=== PATIENT | male | born 1955 | race Two or more races ===

== ENCOUNTER 2025-05-11 11:34 | Outpatient (CLI) | payer MEDICAID ==
[2025-05-11 12:17] LABS: Hematocrit 38.1 % (41.0-53.0); Hemoglobin 12.4 g/dL (13.5-17.5); Mean Corpuscular Hemoglobin 29.2 pg (28.0-32.0); Mean Corpuscular Volume 89.7 fL (80.0-100.0); Nucleated Red Blood Cells % 0.0 %
[2025-05-11 12:36] LABS: Alanine Aminotransferase 27 U/L (7-40); Alkaline Phosphatase 92 U/L (46-116); Anion Gap 11 (5-15); BUN/Creatinine Ratio 15.1 (10.0-20.0); Calcium 9.0 mg/dL (8.7-10.4); Carbon Dioxide 24 mmol/L (20-31); Potassium 5.0 mmol/L (3.5-5.1); Sodium 144 mmol/L (136-145); Total Protein 6.7 g/dL (5.7-8.2)
[2025-05-11 12:37] LABS: Albumin 4.1 g/dL (3.2-4.8); Blood Urea Nitrogen 27 mg/dL (9-23); Chloride 109 mmol/L (98-107); Cholesterol 203 mg/dL (< 200); Glucose 141 mg/dL (74-106); Triglycerides 187 mg/dL (< 150)
[2025-05-11 12:38] LABS: Bilirubin, Total 0.3 mg/dL (0.2-1.0); HDL Cholesterol 37 mg/dL (40-59)
[2025-05-11 12:49] LABS: Uric Acid 6.5 mg/dL (3.7-9.2)
== END 2025-05-11 17:00 | disposition home or self-care (01) ==
LOC: LAB 11:34
PROVIDERS: ATTEND Family Medicine
DX: N40.1 Benign prostatic hyperplasia with lower urinary tract symptoms (principal); E11.22 Type 2 diabetes mellitus with diabetic chronic kidney disease; N18.32 Chronic kidney disease, stage 3b; E11.65 Type 2 diabetes mellitus with hyperglycemia; E11.39 Type 2 diabetes mellitus with other diabetic ophthalmic complication; E11.21 Type 2 diabetes mellitus with diabetic nephropathy
CPT/HCPCS: 36415; 80053; 80061; 83036; 84153; 84443; 84550; 85025

== ENCOUNTER 2025-05-24 12:55 | Outpatient (CLI) | payer MEDICAID ==
[2025-05-24 14:04] LABS: Urine Protein, UAD 2+ (Negative)
== END 2025-05-24 17:00 | disposition home or self-care (01) ==
LOC: LAB 12:55
PROVIDERS: ATTEND Family Medicine
DX: E11.22 Type 2 diabetes mellitus with diabetic chronic kidney disease (principal); N18.32 Chronic kidney disease, stage 3b; N40.1 Benign prostatic hyperplasia with lower urinary tract symptoms; E11.21 Type 2 diabetes mellitus with diabetic nephropathy; E11.65 Type 2 diabetes mellitus with hyperglycemia; E11.39 Type 2 diabetes mellitus with other diabetic ophthalmic complication
CPT/HCPCS: 81001; 82043; 82270